=== PATIENT | female | born 1960 | race Caucasian/White ===

== ENCOUNTER 2021-06-19 18:56 | Observation (INO) | payer MEDICAID ==
[~2021-06-19] VITALS: Ht 157.5 cm; Wt 45.4 kg
--- NOTE | 2021-06-19 18:15 | NUR ---
PT ARRIVED TO FLOOR, PRESSURE DRESSING REMOVED SITE ASSESSED WITH ANUPAM SALTER . SOFT BUT PAINFUL TO TOUCH AT THIS TIME. BRUISING NOTED AND MARKED. PT REPORTING SIGNIFICANT BACK PAIN. VITALS OBTAINED. SITE ASSESSED WITH ONCOMING TIPPLE BOSS RN. EDUCATED ON MOVEMENT RESTRICTIONS AND TO BRACE SITE WITH COUGH
[~2021-06-19 18:56] MED LIST: ASPIRIN E.C. 8181 MG PO; BUSPAR5 MG PO; CARDIZEM CD 18180 MG PO; EPA FISH OIL1 SGL PO; PLAVIX 75MG TAB75 MG PO; PRAVACHOL 40MG40 MG PO; PRAVACHOL10 MG PO; PRIL40 PO; PROAIR HFA0.09 MG/AC IH; TOPROL XL 50MG50 MG PO; VITAMIN D31000 I1 PO
[2021-06-19 19:10] VITALS: BP 155/77; PULSE 75; TEMP 98.3
--- NOTE | 2021-06-19 20:44 | NUR ---
Patient is lying in bed, alert and oriented x 4, complains of pain 9/10 in the right femoral site. Called Dr Clark, verbal order for fentanyl.
[2021-06-20] VITALS (8 sets, daily range): BP systolic 111–153; BP diastolic 45–69; PULSE 59–82; TEMP 98.1–99
--- NOTE | 2021-06-20 06:05 | NUR ---
Patient has had a painful difficult night. She has been unable to sleep. Several doses of PRN pain medication provided. Site continues purple and with more painful with touch. Report will be given to day RN.
--- NOTE | 2021-06-20 07:00 | NUR ---
PT RESTING IN BED. HEMATOMA TO RIGHT GROIN HAS NOT GROWN SINCE MARKED.SITE APPEARS SOFTENED. WILL CONTINUE TO MONITOR.
[2021-06-20 10:00] LABS: BASO # 0.1 K/mm3 (0.0-0.2); BASO % 0.6 % (0.0-2.0); EOS % 0.2 % (0.0-4.0); GRAN # 7.4 K/mm3 (1.4-6.5); GRAN % 73.7 % (42.2-75.2); HEMOGLOBIN 11.7 g/dl (12.5-16.0); LYMPH # 1.7 K/mm3 (1.2-3.4); LYMPH % 17.5 % (20.0-51.0); MEAN CELL VOLUME 93 fl (80.0-100.0); MEAN CORPUSCULAR HEMOGLOBIN 31 pg (27-31); MEAN CORPUSCULAR HGB CONC 33 g/dl (33.0-37.0); MEAN PLATELET VOLUME 9.3 fl (7.4-10.4); MONO # 0.8 K/mm3 (0.1-0.6); MONO % 7.6 % (1.7-9.3); PLATELET COUNT 296 K/mm3 (130-400); RED BLOOD COUNT 3.79 M/mm3 (4.10-5.30)
[2021-06-20 10:01] LABS: HEMATOCRIT 35.3 % (37.0-47.0)
--- NOTE | 2021-06-20 10:11 | NUR ---
Follow-up visit; Patient thanked Seamstress Fitter for looking in on her and offering God's blessings.
[2021-06-20 10:18] LABS: CALCIUM 8.7 mg/dL (8.4-10.2); CREATININE, serum 0.65 mg/dL (0.57-1.11); POTASSIUM 3.9 mmol/L (3.5-4.5)
--- NOTE | 2021-06-20 22:32 | NUR ---
Received report from day shift. Patient alert and oriented x4. VSS. Assessment performed. Patient here for hematoma s/p heart cath, femoral site leaking after patient squatted down at home. Patient complains of pain in right femoral site, rating 6/10. Patient requests tylenol 3 for pain. Patient refused buspirone, stating it made her nauseated earlier. Patient given fresh ice pack. Call light near.
--- NOTE | 2021-06-20 22:33 | NUR ---
Patient complaining of substernal chest pain, rating 8/10, radiating to back. Vital signs obtained, blood pressure elevated, others were WNL. Called [facility] for guidance. Order for hydralyzine PRN, nitro SL, ambien, and EKG were submitted. Patient was given ambien and nitro. Nitro pill given SL, patient stated pain was subsiding, but not gone. Another nitro given, patient states pain has completely subsided. VS taken. blood pressure 117/60, pulse 70, O2 sat 96% on room air. Patient states she will attempt to get some rest. Will continue to monitor. Call light within reach.
--- NOTE | 2021-06-20 22:57 | NUR ---
CALLED [facility] TO INFORM OF EKG RESULTS AND ORDER TELE FOR PATIENT. WILL CONTINUE TO MONITOR.
[2021-06-21 00:06] VITALS: BP 114/62; PULSE 58; TEMP 98
[2021-06-21 03:44] VITALS: BP 133/59; PULSE 68; TEMP 98
[2021-06-21 08:00] VITALS: BP 100/50; PULSE 63; TEMP 98.2
[2021-06-21] MEDS ORDERED: TOPROL XL 25MG25 MG PO (08:49)
[2021-06-21] MEDS ORDERED: NITROSTAT0.4 MG/TAB SL (08:50)
[2021-06-21] MEDS ORDERED: ZOFRAN ODT4 MG PO (08:51)
[2021-06-21] MEDS ORDERED: TYLENOL W/COD1 UDTAB PO (08:51)
--- NOTE | 2021-06-21 10:39 | NUR ---
DISCHARGE DISCHARGE ORDER RECEIVED. DISCHARGE MEDICATIONS AND INSTRUCTIONS REVIEWED WITH PATIENT AND SPOUSE. BOTH STATE UNDERSTANDING. IV REMOVED PER ORDERS. PATIENT BELONGINGS GATHERED. PATIENT ESCORTED OUT VIA WHEELCHAIR BY MATTIE MONTANEZ.
== END 2021-06-21 10:43 | disposition home or self-care (01) ==
LOC: MEDICAL 18:56
PROVIDERS: Nurse Practitioner; ADMIT Internal Medicine Interventional Cardiology
DX: S70.11XA Contusion of right thigh, initial encounter (principal); M79.651 Pain in right thigh; I72.9 Aneurysm of unspecified site; I25.10 Atherosclerotic heart disease of native coronary artery without angina pectoris; E78.5 Hyperlipidemia, unspecified; F17.210 Nicotine dependence, cigarettes, uncomplicated; Z95.5 Presence of coronary angioplasty implant and graft
CPT/HCPCS: G0378; J2405; J3010